=== PATIENT | male | born 1940 | race Caucasian/White ===

== ENCOUNTER 2019-07-12 06:20 | Day surgery (SDC) | payer OTHER | END 2019-07-12 13:20 | disposition home or self-care (01) | LOC: AMB-ENDOS 06:20 → ADM 09:45 → AMB-ENDOS 13:20 | DX: D12.0 Benign neoplasm of cecum (principal); K57.30 Diverticulosis of large intestine without perforation or abscess without bleeding; K64.1 Second degree hemorrhoids ==